=== PATIENT | female | born 1980 | race Caucasian/White ===

== ENCOUNTER 2019-11-19 16:47 | Emergency (ER) | payer OTHER, SELFPAY ==
[2019-11-19 17:21] VITALS: BP 128/93; PULSE 85; RESP 19; TEMP 37.1; O2SAT 96; BMI 19.9
--- NOTE | 2019-11-19 17:36 | HMH.EDUTC ---
[facility] [place] Disposition Clinical Impression: Viral syndrome Disposition: Home, Self-Care Condition on Discharge: Good Instructions: DI for Viral Upper Respiratory Infection -- Adult, Nausea and Vomiting-Adult, Preventing the Spread of Coronavirus Discharge Instructions Additional Instructions: ? Drink extra fluids with and between meals. If you have difficulty drinking, try very small amounts of water or suck on ice chips. ? Avoid fruit juices, as these do not replace minerals and can actually increase diarrhea. ? Children and adults can use sports drinks to replenish electrolytes. Younger children and infants should use products formulated for children, like oral rehydration solutions. ? Eat food in small amounts and let your stomach recover. ? Get lots of rest. You may feel tired or weak. ? No greasy or fried foods for the next 24-48 hours BRAT diet Bananas Rice Apples and Oak ? Make sure to drink plenty of liquids ? Return if needed ? Straight to ER if any life threatening symptoms ? Zofran as prescribed ? Follow up with family doctor in the next 48-72 hours if no improvement or any worsening of symptoms Call back to the [facility] tomorrow for your COVID 19 test results Follow instructions on the handout you was given Return if needed Straight to ER if any life threatening symptoms Prescriptions: Ondansetron [Zofran 4mg ODT] 4 mg PO Q8HP PRN #6 tab PRN Reason: Nausea Transmission Status: Pending to [facility] [id number] Referrals: Christine Pro [Primary Care Provider] - Forms: Work/School Release Time of Disposition: 17:39 Medical Decision Making - Graeme Inquiry Pt receiving controlled substance: No Graeme was queried for this patient: No Vital Signs: 11/19/19 17:21 Temperature 98.8 F Temperature Source Oral Pulse Rate [Right Brachial] 85 Respiratory Rate 19 Blood Pressure [Right Arm] 128/93 H Blood Pressure Mean [Right Arm] 104 Blood Pressure Source [Right Arm] Automatic Cuff Blood Pressure Position [Right Arm] Sitting 02 Sat by Pulse Oximetry 96 Oxygen Delivery Method Room Air - Lab Data Lab results reviewed: Yes: I reviewed the patient's lab results. Orders (Tests/Meds): ORDERS Category Date Time Status Coronavirus 19 Swab (OUTPT) Routine Lab 11/19/19 17:26 Ordered [facility] [place] HPI - General Stated complaint: Fever, cough, diarrhea, nausea Time Seen by Provider: 11/19/19 17:36 Mode of Arrival: Ambulatory Source of Information: Patient Limitations: No Limitations Description of Symptoms (Recalled from Triage Doc. by RN): PATIENT C/O BODY ACHES, COUGH, NAUSEA, DIARRHEA, AND LOW-GRADE FEVER X 1 WEEK HEENT Symptoms (Recalled from RN notes): No Resp Symptoms (Recalled from RN notes): Yes Skin Symptoms (Recalled from RN notes): No MS Symptoms (Recalled from RN notes): No Functional Status (Recalled from RN notes): WNL - History of Present Illness Provider Complaint: Patient states that she hasnt felt well for about a week States that she has been having nausea, diarrhea, sore throat, body aches and chills along with cough on and off States that she was suppose to go to work today but didnt feel well so they told her she had to come and get covid test - Related Data Previous Rx's Medication Instructions Recorded Ondansetron [Zofran 4mg ODT] 4 mg PO Q8HP PRN #6 tab 11/19/19 Allergies Allergy/AdvReac Type Severity Reaction Status Date / Time No Known Allergies Allergy Verified 11/19/19 17:25 - Worker's Comp Is this a Worker's Comp case?: No [facility] History - Hepatitis A Screen Drug use history?: No High risk sexual behaviors?: No History of sexually transmitted infection?: No Currently employed?: No Childcare worker?: No Do you have indoor plumbing?: Yes Do you have electricity?: Yes Attestation statement:: This patient has been screened for Hepatitis A risk factors. I have reviewed the patient's past medical history: Yes - Social History Smoking Status: Current e
[2019-11-19 17:41] LABS: UTC Influenza A Antigen Negative (Negative)
[2019-11-19 17:42] LABS: UTC Influenza B Antigen Negative (Negative)
[2019-11-19 17:58] VITALS: BP 128/93; PULSE 85; RESP 19; TEMP 37.1; O2SAT 96
== END 2019-11-19 17:59 | disposition home or self-care (01) ==
PROVIDERS: Emergency Provider Nurse Practitioner; PCP Family Medicine
DX: B34.9 Viral infection, unspecified (principal); Z20.828 Contact with and (suspected) exposure to other viral communicable diseases; F17.210 Nicotine dependence, cigarettes, uncomplicated
CPT/HCPCS: 87804; 99201; U0003